=== PATIENT | female | born 2005 | race Caucasian/White ===

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

== ENCOUNTER 2024-08-22 13:22 | Emergency (ER) | payer MEDICAID, SELFPAY ==
[2024-08-22 13:24] VITALS: BP 121/78; PULSE 108; RESP 18; TEMP 37.1; O2SAT 98
--- NOTE | 2024-08-22 13:48 | ED.GENADUL_ITS ---
Discharge Plan Disposition Patient Disposition: Home Condition: Good Discharge Details Clinical Impression: Laceration of right index finger Primary Care Provider: Phillip Garcia ED Provider: Elbert Haji Home Meds and New Rx's Prescriptions: No Action pantoprazole 20 mg tablet,delayed release (DR/EC) 20 mg PO BID Patient Comments: TAKE ONE TABLET BY MOUTH TWICE A DAY BEFORE MEALS buspirone 10 mg tablet 10 mg PO BID Patient Comments: TAKE ONE TABLET BY MOUTH TWICE A DAY Discharge Instructions Instructions: Laceration Repair With Glue ED Additional Instructions: At this time your laceration has been sutured with Dermabond. Please keep the area clean and dry. Monitor closely for any redness, drainage or discharge. The glue will come off on its own in the next 5 to 7 days. Please keep the area covered and protected with the splint and bandage to prevent any separation of the skin. If you come back to the emergency department here it will be free of charge for the suture removal. For long-term scar cosmesis, please make sure to avoid any sun to the area for the next year. Apply moisturizer or vitamin E to the area twice daily for the next 12 months for the best chance of wound/scar medication. Please take a daily multivitamin as well as this can help in wound healing. If you notice any worsening of your symptoms, or any new symptoms such as vomiting, diarrhea, fever, chills, shortness of breath, chest pain, numbness, weakness, or fainting , please return immediately to the emergency department for reevaluation. Please follow up with your primary care provider as soon as possible for reassessment and reevaluation. As always, it was a pleasure participating in your medical care today. Referrals: Phillip Garcia [Primary Care Provider] - [facility] General Date/Time Provider Initiated Documentation: 08/22/24 13:37 . [facility] Narrative: This is a pleasant 19-year-old female with no significant past medical history who is left hand dominant who presents today for laceration to her right index finger. Patient cut it while slicing sweet potatoes. Knife was otherwise clean. She denies fever or chills or numbness or tingling. She came to the ER for further assessment. She believes her last tetanus is updated 5 years ago. No other complaints at this time. No other modifying factors. Related Data Home Medications ?Medication ?Instructions ?Recorded ?Confirmed buspirone 10 mg tablet 10 mg PO BID 08/22/24 08/22/24 pantoprazole 20 mg tablet,delayed 20 mg PO BID 08/22/24 08/22/24 release Allergies Allergy/AdvReac Type Severity Reaction Status Date / Time amoxicillin Allergy Intermediate Swelling/Ed Verified 08/22/24 13:26 pat clarithromycin Allergy Intermediate Hives Unverified 08/22/24 13:26 Penicillins Allergy Anaphylaxis Verified 08/22/24 13:26 General Stated Complaint: Laceration CELESTE: 3 Exam Narrative Exam Narrative: 1.Const: Well-nourished, Well-developed, appearing stated age 2.Eyes: PERRL, no conjunctival injection, and symmetrical lids. 3.ENT: Atraumatic external nose and ears. Moist MM. Neck: Symmetric, trachea midline, No thyromegaly. 4.CVS: +S1/S2, Peripheral pulses 2+ and equal in all extremities. Brisk capillary refill in all extremities. 5.RESP: Unlabored respiratory effort. Clear to auscultation bilaterally. No wheezes rales or rhonchi 6.GI: Soft, Nontender/Nondistended, No hepatosplenomegaly. No guarding or rebound. 7.MSK: Normocephalic/Atraumatic, Extremities w/o deformity or ttp No cyanosis or clubbing, Normal movement of all extremities. Patient demonstrates excellent flexion extension of the distal tip. Brisk capillary refill. Normal sensation throughout. 8.Skin: Warm, Dry. Right index finger demonstrates a small laceration from the DIP tip just underneath the nail slightly proximally on the medial edge. There does not appear to be tendon involvement. Continue mild bloody oozing is present. 9.Neuro: fabricator foam rubber II-XII grossly intact. Sensation grossly intact, no focal neurologic deficits. 10.Psych: (AAO) x3. Appropriate mood and affect Course Vital Signs Vital signs: Vital Signs Temperature 37.1 C 08/22/24 13:24 Pulse 108 H 08/22/24 13:24 Respiratory Rate 18 08/22/24 13:24 Blood Pressure 121/78 08/22/24 13:24 Pulse Oximetry 98 08/22/24 13:24 Temperature 37.1 C 08/22/24 13:24 Temperature Source Temporal Artery Scan 08/22/24 13:24 Pulse 108 H 03/07/25 13:24 Respiratory Rate 18 08/22/24 13:24 Blood Pressure 121/78 08/22/24 13:24 Pulse Oximetry 98 08/22/24 13:24 Medical Decision Making This is a pleasant 19-year-old female with no significant past medical history who is left hand dominant who presents today for laceration to her right index finger. Patient cut it while slicing sweet potatoes. Knife was otherwise clean. She denies fever or chills or numbness or tingling. She came to the ER for further assessment. She believes her last tetanus is updated 5 years ago. No other complaints at this time. No other modifying factors. Review of records indicate that the patient's tetanus was updated in 2022. Patient demonstrates a small laceration on the tip of her right index finger. The area was cleaned, tourniquet was applied, bleeding stopped. Due to the superficial component to the patient's laceration I do feel that Dermabond will be adequate for good laceration management. Multiple layers of Dermabond were applied, patient tolerated this well. She will give be given a splint for home use for home wound protection. Discussed red flags which return. I have extensively reviewed the treatment plan and discharge instructions with the zoe adhikari. I have addressed all patient concerns at this time. The patient was made aware of what symptoms to monitor for that would warrant a return to the emergency department. Discussed the plan with the patient, they demonstrate verbal understanding and agreement with our assessment and plan at this time. The documentation in this chart was dictated using [employer] dictation software. Please excuse any dictation errors. 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) Medical History (Updated 08/22/24 @ 13:55 by Elbert Haji DO) Acute cholecystitis Breast tenderness in female Well adolescent visit BMI (body mass index), pediatric, 5% to less than 85% for age (03/08/15) Depressive disorder (10/22/17) lexa and behavioral problems- will work with counselor and consider meds if worse Twins, both liveborn (02/28/13) Surgical History (Updated 08/03/23 @ 14:01 by Tierra Coffman) Hx of cholecystectomy (~07/2023) S/P laparoscopic cholecystectomy (~07/2023) Tonsillectomy and adenoidectomy 10/31 Family History Mother Fibrocystic breast Social History Smoking/Tobacco Use Status: Never Second Hand Exposure: No Smoking risk assessment performed?: Yes Alcohol Intake: never Drug use: Never Substance use type: does not use Adopted: No Foster care: No Housing: house Education Level: other Details: Home school for 10th grade Pets and animals: Yes (Dog and 2 guinea pigs) Pets and animals: dog(s) and guinea pig(s) Do you feel safe at home: Yes Do you feel safe in your relationship?: Yes Female Reproductive History Menstrual Duration of menses: 3-5 days control method: none History History 1 Para 1 Hx # Term Pregnancies 1 Multiple births 0 Hx # Pregnancies 0 Ectopic pregnancies 0 AB induced 0 Hx Number of Living Children 1 AB spontaneous 0 Past Pregnancies Del. Date GA/Weeks # Preg Succ Route Wgt Sex Labor Lgth Anesth esia Location [facility] 06/27/23 41 No Yes vaginal 3190.002 g Male 9hrs 20min CINTHIA Artis Delivery Date: 06/27/23 Last Updated by: Nano Wolfe CNM induced due to 40w6d and low MATHEW @ 6.8; episiotomy due to doppler FHR of 90's and maternal fatigueEvangelist
== END 2024-08-22 14:24 | disposition home or self-care (01) ==
PROVIDERS: Emergency Provider Student in an Organized Health Care Education/Training Program; PCP Student in an Organized Health Care Education/Training Program
DX: S61.210A Laceration without foreign body of right index finger without damage to nail, initial encounter (principal); W26.0XXA Contact with knife, initial encounter; Y93.G3 Activity, cooking and baking; Y92.89 Other specified places as the place of occurrence of the external cause
CPT/HCPCS: 12001; 99283

== ENCOUNTER 2024-08-27 22:31 | Outpatient (REF) | payer MEDICAID, SELFPAY ==
[2024-08-27 22:26] LABS: ALT 18 U/L (14-59); AST 12 U/L (15-37); Albumin 4.4 g/dL (3.4-5.0); Alkaline Phosphatase 131 U/L (46-116); Anion Gap 10.5 mmol/L (3-11); BUN 13 mg/dL (7-18); Bilirubin, Total 2.3 mg/dL (0.2-1.0); CO2 25.5 mmol/L (21.0-32.0); CREATININE 0.8 mg/dL (0.55-1.02); Calcium 9.4 mg/dL (8.5-10.1); Calculated LDL 69 mg/dL (<100); Chloride 108 mmol/L (98-107); Cholesterol 125 mg/dL (<200); Estimated GFR 108.11 (mL/min/1.73m2); Glucose 76 mg/dL (74-106); HDL Cholesterol 50 mg/dL (>or=50); Potassium 4.2 mmol/L (3.5-5.1); Sodium 144 mmol/L (136-145); Total Protein 6.9 g/dL (6.4-8.2); Triglyceride 32 mg/dL (<150)
== END 2024-08-27 22:32 | disposition home or self-care (01) ==
LOC: NCHCN 22:31
PROVIDERS: PCP Student in an Organized Health Care Education/Training Program; Visit Provider Student in an Organized Health Care Education/Training Program
DX: R19.5 Other fecal abnormalities (principal); Z13.220 Encounter for screening for lipoid disorders
CPT/HCPCS: 80053; 80061

== ENCOUNTER 2024-09-10 10:07 | Outpatient (REF) | payer MEDICAID, SELFPAY ==
[2024-09-10 15:25] LABS: ALT 20 U/L (14-59); AST 9 U/L (15-37); Albumin 4.3 g/dL (3.4-5.0); Alkaline Phosphatase 124 U/L (46-116); Anion Gap 8.5 mmol/L (3-11); BUN 13 mg/dL (7-18); Bilirubin, Direct 0.3 mg/dL (0.0-0.2); Bilirubin, Total 1.9 mg/dL (0.2-1.0); CO2 28.5 mmol/L (21.0-32.0); CREATININE 0.8 mg/dL (0.55-1.02); Calcium 9.3 mg/dL (8.5-10.1); Chloride 107 mmol/L (98-107); Estimated GFR 108.11 (mL/min/1.73m2); Glucose 84 mg/dL (74-106); Potassium 4.2 mmol/L (3.5-5.1); Sodium 144 mmol/L (136-145); Total Protein 6.9 g/dL (6.4-8.2)
== END 2024-09-10 10:08 | disposition home or self-care (01) ==
LOC: NCHCN 10:07
PROVIDERS: PCP Student in an Organized Health Care Education/Training Program; Visit Provider Student in an Organized Health Care Education/Training Program
DX: R17 Unspecified jaundice (principal)
CPT/HCPCS: 80053; 82248

== ENCOUNTER 2024-09-12 01:02 | Outpatient (CLI) | payer MEDICAID, SELFPAY ==
[2024-09-12 15:14] LABS: Abs Immature Grans 0.01 10^3/uL (0.0-0.06); Absolute Basophil Count 0.02 10^3/uL (0.0-0.2); Absolute Eosinophil Count 0.03 10^3/uL (0.0-0.7); Absolute Lymphocyte Count 2.09 10^3/uL (1.2-3.4); Absolute Monocyte Count 0.27 10^3/uL (0.1-0.8); Basophils % 0.4 %; Eosinophils % 0.6 %; HCT 41.5 % (36.0-46.0); HGB 14.1 g/dL (11.2-15.7); Immature Grans % 0.2 %; Lymphocytes % 42.5 %; MCH 31.8 pg (27.0-33.0); MCV 94 fL (80-95); MPV 9.2 fL (8.0-11.0); Monocytes % 5.5 %; Neutrophils % 50.8 %; Platelet Count 183 10^3/uL (130-400); RBC 4.43 10^6/uL (3.93-5.22); RDW 11.7 % (11.7-14.6); RDW-SD 40.4 fL; WBC 4.92 10^3/uL (4.4-10.8)
[2024-09-16 19:50] LABS: Tissue Transglutaminase Ab IgA <1.2 U/mL (<4.0); Tissue Transglutaminase Ab IgG 1.9 U/mL
[2024-09-18 15:39] LABS: Pyridoxal 5-Phosphate (PLP), P 11 mcg/L (5-50)
== END 2024-09-12 01:03 | disposition home or self-care (01) ==
LOC: LBO 01:02
PROVIDERS: PCP Student in an Organized Health Care Education/Training Program; Visit Provider Student in an Organized Health Care Education/Training Program
DX: R19.5 Other fecal abnormalities (principal); R17 Unspecified jaundice; R94.5 Abnormal results of liver function studies
CPT/HCPCS: 36415; 83516; 84207; 85025

== ENCOUNTER 2024-10-02 08:40 | Outpatient (CLI) | payer MEDICAID, SELFPAY ==
--- NOTE | 2024-10-02 | DI.US_ITS ---
Exam(s) US ABDOMEN EXAM: US ABDOMEN CLINICAL HISTORY: RUQ PAIN, R10.11,WORSENING,OCCS LUQ PAIN,H/O CHOLECYSTECTOMY TECHNIQUE: Ultrasound of complete upper abdomen performed using standard protocol. COMPARISON: US US ABDOMEN LIMITED from 08/02/[address] ABDOMEN PELVIS W from 08/04/2023 FINDINGS: There is no ascites evident. LIVER: There are no hepatic lesions evident nor obvious dilatation of intrahepatic ducts. GALLBLADDER/BILIARY: Gallbladder is surgically absent (08/02/2023). There is no abnormal fluid colle ction in the gallbladder fossa. The common hepatic duct isupper normal, measuring 6mm at the level of denis hepatis. PANCREAS: There is no evidence of pancreatic mass nor dilatation of the pancreatic duct. There are n o peripancreatic fluid collections. SPLEEN: The spleen is not enlarged and there are no intrasplenic lesions evident. KIDNEYS:Kidneys exhibit normal size with no evidence of solid mass, calculus, nor hydronephrosis. No cortical cysts evident. ABDOMINAL AORTA: There is no evidence of abdominal aortic aneurysm. IVC: Normal diameter where visualized. IMPRESSION: 1. Gallbladder surgically absent. CBD diameter is upper normal 2. No other significant ultrasound findings in the upper abdomen. 3. No abnormal fluid collections nor ascites. I note that prior CT scan performed in July 2023 revealed some fluid between the pancreatic tail and spleen most probably consistent with pancreatitis at that time. There are no abnormal fluid collections evident in this region on today's ultrasound exam images. In addition, the pancreas appears sonographically unremarkable. If there is continuing pain than 1 might consider follow-up CT scan as this may show subtle evidence of pancreatitis not visible on ultrasound. DATA REPOSITORY:
== END 2024-10-02 09:00 ==
LOC: DI 08:40
PROVIDERS: PCP Student in an Organized Health Care Education/Training Program; Visit Provider Student in an Organized Health Care Education/Training Program
DX: R10.11 Right upper quadrant pain (principal); Z90.49 Acquired absence of other specified parts of digestive tract
CPT/HCPCS: 76700

== ENCOUNTER 2024-10-28 01:27 | Outpatient (CLI) | payer MEDICAID, SELFPAY ==
[2024-10-28] MEDS: Barium Sulfate 2% W/V-Berry Smoothie 450 ML BTL PO (11:29)
[2024-10-28] MEDS: Barium Sulfate 2% W/V-Creamy Vanilla Smoothie 450 ML BTL PO (11:30)
[2024-10-28] MEDS: Omnipaque 350 MG/ML 100 ML BTL 75 ML IJ (14:19)
[2024-10-28] MEDS: Normal Saline - Diluent 50 ML VIAL IJ (14:20)
--- NOTE | 2024-10-28 14:20 | DI.CT_ITS ---
Exam(s) CT ABDOMEN PELVIS W EXAM: CT ABDOMEN PELVIS W CLINICAL HISTORY: ACUTE UPPER ABDOMINAL PAIN, R10.10 HX PANCREATITIS TECHNIQUE: Imaging Protocol: Axial computed tomography images with coronal and sagittal reformatted images were created and reviewed. CONTRAST MATERIAL: Intravenous: Omnipaque 350 Contrast volume:75 mL Oral: Yes COMPARISON: CT CT ABDOMEN PELVIS W from 08/04/2023 FINDINGS: ABDOMEN: Lung Bases: No acute abnormality. Liver: Normal density. No measurable mass. Portal, Superior Mesenteric, and Splenic Veins: Unremarkable. Gallbladder and Biliary Tract: Status post cholecystectomy. No significant biliary ductal dilatation. Pancreas: Normal density, no abnormal calcifications or inflammatory process. Spleen: Normal. Adrenals: No masses seen. Kidneys: Normal size, contour and axis. No radiodense stones or obstructive uropathy. No masses seen. Abdominal Aorta: Abdominal portion non-dilated. Bowel: No obstruction or bowel wall thickening. There is no evidence of appendicitis. Peritoneal Cavity: There is a trace amount of free fluid in the cul-de-sac which may be physiologic. No free air. Lymph Nodes: Within normal limits. Bones: Within normal limits for the patient's age. Soft Tissues: There is a small fat containing umbilical hernia. PELVIS: Bladder: Symmetric distention, no gross wall thickening. Reproductive Organs: There is a corpus luteal cyst on the left ovary. Lymph Nodes: Within normal limits. Bones: Within normal limits for the patient's age. IMPRESSION: 1. No CT evidence to suggest acute pancreatitis. 2. Status post cholecystectomy. 3. Left corpus luteal cyst. Trace amount of free fluid in the pelvis which is likely physiologic. RADIATION DOSE DELIVERED: 354.84mGy.cm Total DLP DATA REPOSITORY: All CT scans at this facility are submitted to the National Radiology Data Registry (NRDR) Dose Index Registry (DIR) with the [employer] (ACR). RADIATION OPTIMIZATION: All CT scans at this facility use at least one of these dose optimization te chniques: automated exposure control; mA and/or kV adjustment per patient size (includes targeted exa ms where dose is matched to clinical indication); or iterative reconstruction.
== END 2024-10-28 01:47 ==
LOC: DI 01:27
PROVIDERS: PCP Student in an Organized Health Care Education/Training Program; Visit Provider Student in an Organized Health Care Education/Training Program
DX: R10.10 Upper abdominal pain, unspecified (principal)
CPT/HCPCS: 74177; J3490

== ENCOUNTER 2024-11-25 16:15 | Outpatient (CLI) | payer MEDICAID, SELFPAY ==
[2024-11-25 16:42] LABS: Abs Immature Grans 0.02 10^3/uL (0.0-0.06); Absolute Basophil Count 0.02 10^3/uL (0.0-0.2); Absolute Eosinophil Count 0.01 10^3/uL (0.0-0.7); Absolute Lymphocyte Count 1.89 10^3/uL (1.2-3.4); Absolute Monocyte Count 0.38 10^3/uL (0.1-0.8); Basophils % 0.3 %; Eosinophils % 0.1 %; HCT 40.7 % (36.0-46.0); HGB 13.7 g/dL (11.2-15.7); Immature Grans % 0.3 %; Lymphocytes % 26.2 %; MCH 31.5 pg (27.0-33.0); MCHC 33.7 % (32.0-36.0); MCV 94 fL (80-95); MPV 9.2 fL (8.0-11.0); Monocytes % 5.3 %; Neutrophils % 67.8 %; Platelet Count 184 10^3/uL (130-400); RBC 4.35 10^6/uL (3.93-5.22); RDW 11.8 % (11.7-14.6); WBC 7.22 10^3/uL (4.4-10.8)
[2024-11-25 17:13] LABS: ALT 24 U/L (14-59); AST 11 U/L (15-37); Albumin 4.2 g/dL (3.4-5.0); Alkaline Phosphatase 111 U/L (46-116); Amylase 46 U/L (25-115); Anion Gap 10.6 mmol/L (3-11); BUN 13 mg/dL (7-18); Bilirubin, Total 1.7 mg/dL (0.2-1.0); CO2 25.4 mmol/L (21.0-32.0); CREATININE 0.7 mg/dL (0.55-1.02); Calcium 9.1 mg/dL (8.5-10.1); Chloride 105 mmol/L (98-107); Glucose 90 mg/dL (74-106); Lipase 30 U/L (<78); Sodium 141 mmol/L (136-145); Total Protein 6.9 g/dL (6.4-8.2)
[2024-11-25 17:20] LABS: C-Reactive Protein < 0.50 mg/dL (<or=0.5)
== END 2024-11-25 16:16 | disposition home or self-care (01) ==
LOC: LBO 16:17
PROVIDERS: PCP Student in an Organized Health Care Education/Training Program; Visit Provider Student in an Organized Health Care Education/Training Program
DX: R10.10 Upper abdominal pain, unspecified (principal)
CPT/HCPCS: 36415; 80053; 83690; 82150; 85025; 86140

== ENCOUNTER 2025-05-18 20:16 | Emergency (ER) | payer MEDICAID, SELFPAY ==
[2025-05-18 20:17] VITALS: BP 116/81; PULSE 87; RESP 18; TEMP 35.7; O2SAT 98
--- NOTE | 2025-05-18 20:25 | W.ED.GENAD ---
Discharge Plan Discharge Details Chief Complaint: Abd Prob Primary Care Provider: Phillip Garcia ED Provider: Koki Perkins Home Meds and New Rx's Prescriptions: No Action pantoprazole 20 mg tablet,delayed release (DR/EC) 20 mg PO BID Patient Comments: TAKE ONE TABLET BY MOUTH TWICE A DAY BEFORE MEALS pantoprazole 40 mg tablet,delayed release (DR/EC) 40 mg PO BID Patient Comments: TAKE ONE TABLET BY MOUTH TWICE A DAY hydroxyzine HCl 10 mg tablet See Rx Instructions PO .COMPLEX Patient Comments: TAKE 1-2 TABLETS BY MOUTH TWO TIMES A DAY NEEDED FOR ANXIETY AND RASH Rx Instructions: 1-2 tab, BID, PRN orally; sertraline 50 mg tablet 50 mg PO DAILY Patient Comments: TAKE ONE TABLET BY MOUTH EVERY DAY HPI General Date/Time Provider Initiated Documentation: 05/18/25 20:18. HPI Narrative: Christie is a 19-year-old female presents to the emergency department today for evaluation of worsening right lower quadrant pain x 3 days. She reports that it has been increasing in intensity and frequency since onset, is described as a sharp constant pain that is worsened with coughing or bearing down. Denies fever/chills, recent illness such as congestion/sore throat/cough, chest pain, nausea/vomiting, change in p.o. intake, change in bowel or bladder function, unusual vaginal discharge. LMP 1 week ago. No history of similar symptoms. Past medical history significant for ovarian cyst, gallstone pancreatitis. Surgical history significant for cholecystectomy and tonsillectomy/adenoidectomy. She has not taken any medication at home for symptoms. Related Data Home Medications ?Medication ?Instructions ?Recorded ?Confirmed pantoprazole 20 mg tablet,delayed 20 mg PO BID 08/22/24 05/18/25 release hydroxyzine HCl 10 mg tablet See Rx Instructions PO .COMPLEX 05/18/25 05/18/25 pantoprazole 40 mg tablet,delayed 40 mg PO BID 05/18/25 05/18/25 release sertraline 50 mg tablet 50 mg PO DAILY 05/18/25 05/18/25 Allergies Allergy/AdvReac Type Severity Reaction Status Date / Time amoxicillin Allergy Intermediate Swelling/Ed Verified 05/18/25 20:20 pat clarithromycin Allergy Intermediate Hives Unverified 05/18/25 20:20 Penicillins Allergy Anaphylaxis Verified 05/18/25 20:20 General Stated Complaint: Abd Prob CELESTE: 3 Exam Const General: cooperative, healthy appearing, comfortable, no acute distress and well developed Nutritional Appearance: average body habitus and well nourished Orientation: alert and oriented x3 Resp Effort & Inspection: normal respiratory effort and able to speak in complete sentences Auscultation: clear to auscultation bilaterally Cardio Rate: regular rate Rhythm: regular rhythm GI Inspection: normal to inspection, no abdominal wall ecchymosis and non-distended Palpation: soft, no masses, no pulsatile masses and tender in the RLQ Auscultation: normal bowel sounds Back/Spine/Pelvis Back: no CVA tenderness Skin General skin exam: no rashes or lesions noted Course Vital Signs Vital signs: Vital Signs Temperature 35.7 C L 05/18/25 20:17 Pulse 87 05/18/25 20:17 Respiratory Rate 18 05/18/25 20:17 Blood Pressure 116/81 05/18/25 20:17 Pulse Oximetry 98 05/18/25 20:17 Temperature 35.7 C L 05/18/25 20:17 Pulse 87 05/18/25 20:17 Respiratory Rate 18 05/18/25 20:17 Blood Pressure 116/81 05/18/25 20:17 Pulse Oximetry 98 05/18/25 20:17 Pain Level 6 05/18/25 20:17 Medical Decision Making Christie is a 19-year-old female presents to the emergency department today for evaluation of worsening right lower quadrant pain x 3 days. She reports that it has been increasing in intensity and frequency since onset, is described as a sharp constant pain that is worsened with coughing or bearing down. Denies fever/chills, recent illness such as congestion/sore throat/cough, chest pain, nausea/vomiting, change in p.o. intake, change in bowel or bladder function, unusual vaginal discharge. LMP 1 week ago. No history of similar symptoms. Past medical history significant for ovarian cyst, gallstone pancreatitis. Surgical history significant for cholecystectomy and tonsillectomy/adenoidectomy. She has not taken any medication at home for symptoms. Physical exam reassuring. Abdomen soft, nondistended, tender to palpation right lower quadrant, normal Bowel sounds. No CVA tenderness. Easy work of breathing, lung sounds clear bilaterally. Normal heart sounds, regular rate and rhythm. DDx includes but is not limited to: Appendicitis, diverticulitis, ovarian cyst, fibroids, colitis, UTI, pyelonephritis I independently interpreted the following tests: CBC, CMP, magnesium, lipase, UA, hCG all unremarkable. While in the emergency department Christie was given IV Toradol without significant proving of symptoms. [facility] report pending. Handoff report given to Dr. Noble, overnight attending. 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) Medical History (Updated 09/22/24 @ 00:02 by CHING FARNSWORTH) Acute cholecystitis Breast tenderness in female Well adolescent visit BMI (body mass index), pediatric, 5% to less than 85% for age (03/08/15) Depressive disorder (10/22/17) lexa and behavioral problems- will work with counselor and consider meds if worse Twins, both liveborn (02/28/13) Surgical History (Updated 08/03/23 @ 14:01 by Tierra Coffman) Hx of cholecystectomy (~07/2023) S/P laparoscopic cholecystectomy (~07/2023) Tonsillectomy and adenoidectomy 10/31 Family History Mother Fibrocystic breast Social History Smoking/Tobacco Use Status: Never Second Hand Exposure: No Smoking risk assessment performed?: Yes Alcohol Intake: never Drug use: Never Substance use type: does not use Adopted: No Foster care: No Housing: house Education Level: other Details: Home school for 10th grade Pets and animals: Yes (Dog and 2 guinea pigs) Pets and animals: dog(s) and guinea pig(s) Do you feel safe at home: Yes Do you feel safe in your relationship?: Yes Female Reproductive History Menstrual Duration of menses: 3-5 days control method: none History History 1 Para 1 Hx # Term Pregnancies 1 Multiple births 0 Hx # Pregnancies 0 Ectopic pregnancies 0 AB induced 0 Hx Number of Living Children 1 AB spontaneous 0 Past Pregnancies Del. 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
[2025-05-18] MEDS: Ketorolac 15 MG/ML VIAL IVP (20:50)
[2025-05-18 20:54] LABS: Glucose Negative (Negative)
[2025-05-18 20:56] LABS: Abs Immature Grans 0.01 10^3/uL (0.0-0.06); HCT 41.1 % (36.0-46.0); HGB 13.8 g/dL (11.2-15.7); Immature Grans % 0.1 %; MCH 32.2 pg (27.0-33.0); MCHC 33.6 % (32.0-36.0); MCV 96 fL (80-95); MPV 8.9 fL (8.0-11.0); Platelet Count 197 10^3/uL (130-400); RBC 4.28 10^6/uL (3.93-5.22); RDW 11.8 % (11.7-14.6); RDW-SD 41.1 fL; WBC 7.27 10^3/uL (4.4-10.8)
[2025-05-18 21:00] VITALS: BP 116/81; PULSE 87; RESP 16; TEMP 35.7; O2SAT 98
[2025-05-18 21:10] LABS: Magnesium 2.0 mg/dL (1.6-2.6)
[2025-05-18 21:12] LABS: ALT 10 U/L (10-49); AST 12 U/L (<34); Albumin 4.4 g/dL (3.2-5.0); Alkaline Phosphatase 96 U/L (46-116); Anion Gap 7.6 mmol/L (3-11); BUN 16 mg/dL (9-23); Bilirubin, Total 1.10 mg/dL (0.2-1.2); CO2 27.4 mmol/L (20.0-31.0); Calcium 9.0 mg/dL (8.3-10.6); Chloride 106 mmol/L (98-107); Glucose 89 mg/dL (74-106); Potassium 4.3 mmol/L (3.5-5.1); Sodium 141 mmol/L (136-145); Total Protein 6.7 g/dL (5.7-8.2)
--- NOTE | 2025-05-18 21:30 | DI.CT_ITS ---
Exam(s) CT ABDOMEN PELVIS W EXAM: CT ABDOMEN PELVIS W CLINICAL HISTORY: RLQ pain x 3 days TECHNIQUE: Imaging Protocol: Axial computed tomography images with coronal and sagittal reformatted images were created and reviewed. CONTRAST MATERIAL: Intravenous: Omnipaque 350 Contrast volume:75 mL Oral: No COMPARISON: CT CT ABDOMEN PELVIS W from 08/04/[address] ABDOMEN PELVIS W from 10/28/2024 FINDINGS: ABDOMEN: Lung Bases: No acute abnormality. Liver: Normal density. No measurable mass. Portal, Superior Mesenteric, and Splenic Veins: Unremarkable. Gallbladder and Biliary Tract: Status post cholecystectomy. There is no significant biliary ductal dilatation. Pancreas: Normal density, no abnormal calcifications or inflammatory process. Spleen: Normal. Adrenals: No masses seen. Kidneys: Normal size, contour and axis. No radiodense stones or obstructive uropathy. No masses seen. Abdominal Aorta: Abdominal portion non-dilated. Bowel: No obstruction or bowel wall thickening. Appendix is unremarkable. Peritoneal Cavity: There is a trace amount of fluid in the cul-de-sac which is likely physiologic. No free air. Lymph Nodes: Within normal limits. Bones: Within normal limits for the patient's age. Soft Tissues: There is a small fat containing umbilical hernia. PELVIS: Bladder: Symmetric distention, no gross wall thickening. Reproductive Organs: Unremarkable as visualized. There is a 1.6 cm physiologic right ovarian cyst. Lymph Nodes: Within normal limits. Bones: Within normal limits for the patient's age. IMPRESSION: 1. There is no evidence of appendicitis. 2. There is no acute abdominal or pelvic process. 3. 1.6 cm right ovarian cyst and trace amount of free fluid in the cul-de-sac which is likely physiologic. 4. The preliminary [facility] report was reviewed. RADIATION DOSE DELIVERED: 365.34mGy.cm Total DLP DATA REPOSITORY: All CT scans at this facility are submitted to the National Radiology Data Registry (NRDR) Dose Index Registry (DIR) with the [employer] (ACR). RADIATION OPTIMIZATION: All CT scans at this facility use at least one of these dose optimization techniques: automated exposure control; mA and/or kV adjustment per patient size (includes targeted exams where dose is matched to clinical indication); or iterative reconstruction.
[2025-05-18 21:36] LABS: Lab Add On Test DONE
[2025-05-18 21:49] LABS: Lipase 36 U/L (<53)
[2025-05-18] MEDS: Omnipaque 350 MG/ML 100 ML BTL IJ (23:07)
[2025-05-18] MEDS: Normal Saline Flush 10 ML SYR IVP (23:09)
[2025-05-18] MEDS: Normal Saline - Diluent 50 ML VIAL IJ (23:09)
[2025-05-18 23:26] VITALS: RESP 16
--- NOTE | 2025-05-18 23:56 | DI.[facility]_ITS ---
PROCEDURE INFORMATION: Exam: CT Abdomen And Pelvis With Contrast Exam date and time: 05/18/2025 11:04 PM Age: 19 years old Clinical indication: Abdominal pain; Localized; Right lower quadrant (rlq); Prior surgery; Surgery date: 6+ months; Surgery type: Cholecystectomy TECHNIQUE: Imaging protocol: Computed tomography of the abdomen and pelvis with contrast. Radiation optimization: All CT scans at this facility use at least one of these dose optimization techniques: automated exposure control; mA and/or kV adjustment per patient size (includes targeted exams where dose is matched to clinical indication); or iterative reconstruction. Contrast material: OMNIPAQUE 350; Contrast volume: 75 ml; Contrast route: INTRAVENOUS (IV); COMPARISON: CT ABDOMEN PELVIS W 10/28/2024 2:15 PM FINDINGS: Liver: Normal. No mass. Gallbladder and biliary ducts: Gallbladder surgically absent. Pancreas: Normal. No ductal dilation. Spleen: Normal. No splenomegaly. Adrenal glands: Normal. No mass. Kidneys and ureters: Normal. No hydronephrosis. Stomach and bowel: Unremarkable. No obstruction. No mucosal thickening. Appendix: No evidence of appendicitis. Intraperitoneal space: Small amount of free pelvic fluid. Vasculature: Unremarkable. No abdominal aortic aneurysm. Lymph nodes: Unremarkable. No enlarged lymph nodes. Urinary bladder: Unremarkable as visualized. Reproductive: 1.7 cm low attenuation lesion at the right ovary suggestive of an cyst. 8 mm right Bartholin's gland cyst. Bones/joints: Unremarkable. No acute fracture. Soft tissues: Unremarkable. IMPRESSION: 1.7 cm low attenuation lesion at the right ovary suggestive of an cyst. Dictated and Authenticated by: Deep Mike MD. Orderin Rick Telles MD
--- NOTE | 2025-05-19 00:35 | W.EDPROG ---
Date of service: 05/18/25 Time of Service: 23:30 Medical Decision Making This patient was signed out to me. Please see previous notes for H&P and initial eval. ED workup reviewed: -CBC reassuring with no leukocytosis or anemia, CMP wtih no actionable abnormalities, lipase not suggestive of pancreatitis, UA not infected. -CT with small right ovarian cyst, no other acute findings. On my assessment patient reports lower right abdominal pain for the past two days, worsening, now severe. Has had ovarian cysts in the past but this pain is not similar. No N/V/D. No vaginal discharge. Otherwise in her usual state of health. Patient has had minimal improvement in pain despite medication here, remains severe 11/25. On my exam abdominal exam with RLQ tenderness, no rebound or guarding. Pelvic exam performed with assistance of primary RN; no CMT, does have rt adenxal tenderness. Will give low-dose IV morphine. Given symptoms and adenexal tenderness, warrants pelvic US to evaluate for ovarian pathology including torsion. [facility] without US availability overnight. Discussed with [facility] [place] transfer center; pt accepted ED to ED under Dr. Rg. Transferred via [facility]. Lab Data Lab results reviewed: Yes I reviewed the patient's lab results. Labs: Laboratory Tests Range/Units 05/18/25 05/18/25 20:40 21:32 WBC (4.4-10.8) 10^3/uL 7.27 RBC (3.93-5.22) 10^6/uL 4.28 Hgb (11.2-15.7) g/dL 13.8 Hct (36.0-46.0) % 41.1 MCV (80-95) fL 96 H MCH (27.0-33.0) pg 32.2 MCHC (32.0-36.0) % 33.6 RDW (11.7-14.6) % 11.8 Plt Count (130-400) 10^3/uL 197 MPV (8.0-11.0) fL 8.9 Immature Gran % % 0.1 Neutrophils % % 62.3 Lymphocytes % % 31.2 Monocytes % % 5.4 Eosinophils % % 0.6 Basophils % % 0.4 Nucleated RBC % (0.0-0.3) % 0.0 Absolute Neutrophils (1.2-6.7) 10^3/uL 4.53 Absolute Lymphocytes (1.2-3.4) 10^3/uL 2.27 Absolute Monocytes (0.1-0.8) 10^3/uL 0.39 Absolute Eosinophils (0.0-0.7) 10^3/uL 0.04 Absolute Basophils (0.0-0.2) 10^3/uL 0.03 Sodium (136-145) mmol/L 141 Potassium (3.5-5.1) mmol/L 4.3 Chloride (98-107) mmol/L 106 Carbon Dioxide (20.0-31.0) mmol/L 27.4 Anion Gap (3-11) mmol/L 7.6 BUN (9-23) mg/dL 16 Creatinine (0.55-1.02) mg/dL 0.93 Est GFR (CKD-EPI 2020) (mL/min/1.73m2) 76.20 Glucose (74-106) mg/dL 89 Calcium (8.3-10.6) mg/dL 9.0 Magnesium (1.6-2.6) mg/dL 2.0 Total Bilirubin (0.2-1.2) mg/dL 1.10 AST (<34) U/L 12 ALT (10-49) U/L 10 Alkaline Phosphatase (46-116) U/L 96 Total Protein (5.7-8.2) g/dL 6.7 Albumin (3.2-5.0) g/dL 4.4 Lipase (<53) U/L 36 Urine Color (Yellow) Yellow Urine Clarity (Clear) Clear Urine pH (5-8) 7.0 Ur Specific Couch (1.005-1.025) 1.015 Urine Protein (Neg-Trace) mg/dL Negative Urine Ketones (Negative) mg/dL Negative Urine Blood (Negative) Negative Urine Nitrite (Negative) Negative Urine Bilirubin (Negative) Negative Urine Urobilinogen (Up to 0.2) mg/dL 0.2 Ur Leukocyte Esterase (Negative) Negative Urine Glucose (Negative) mg/dL Negative Add-On Test Request DONE Discharge Plan Disposition Patient Disposition: Other Disposition Not Listed [place] [facility] [place]: Serious Discharge Details Clinical Impression: Right lower quadrant abdominal pain Primary Care Provider: Phillip Garcia ED Provider: Taylor Nbole Home Meds and New Rx's Prescriptions: No Action pantoprazole 20 mg tablet,delayed release (DR/EC) 20 mg PO BID Patient Comments: TAKE ONE TABLET BY MOUTH TWICE A DAY BEFORE MEALS pantoprazole 40 mg tablet,delayed release (DR/EC) 40 mg PO BID Patient Comments: TAKE ONE TABLET BY MOUTH TWICE A DAY hydroxyzine HCl 10 mg tablet See Rx Instructions PO .COMPLEX Patient Comments: TAKE 1-2 TABLETS BY MOUTH TWO TIMES A DAY NEEDED FOR ANXIETY AND RASH Rx Instructions: 1-2 tab, BID, PRN orally; sertraline 50 mg tablet 50 mg PO DAILY Patient Comments: TAKE ONE TABLET BY MOUTH EVERY DAY
[2025-05-19] MEDS: MORPHine 10 MG/ML VIAL 2 MG IVP (00:51)
[2025-05-19 01:08] VITALS: RESP 16
[2025-05-19 01:51] VITALS: PULSE 70; O2SAT 96
[2025-05-19] MEDS: Ondansetron 4 MG/2 ML VIAL IVP (02:02)
[2025-05-19] MEDS: MORPHine 10 MG/ML VIAL 4 MG IVP (02:03)
[2025-05-19 02:16] VITALS: RESP 16
== END 2025-05-19 02:22 | disposition other institution (70) ==
PROVIDERS: Nurse Practitioner Family; Emergency Provider Student in an Organized Health Care Education/Training Program; PCP Student in an Organized Health Care Education/Training Program
DX: R10.31 Right lower quadrant pain (principal)
CPT/HCPCS: 00123; 80053; 81025; 83690; 96374; 96375; 96376; 99285; 74177; 81003; 83735; 85025; J1885; J2270; J2405; J3490

== ENCOUNTER 2025-05-22 11:12 | Outpatient (REF) | payer MEDICAID, SELFPAY ==
[2025-05-25 12:03] LABS: Chlamydia Result Negative (Negative); GC Result Negative (Negative)
== END 2025-05-22 11:13 | disposition home or self-care (01) ==
LOC: LBN 11:12
PROVIDERS: PCP Student in an Organized Health Care Education/Training Program; Visit Provider Obstetrics & Gynecology
DX: Z11.3 Encounter for screening for infections with a predominantly sexual mode of transmission (principal)
CPT/HCPCS: 87491; 87591

== ENCOUNTER 2025-06-03 16:15 | Outpatient (CLI) | payer MEDICAID, SELFPAY ==
[2025-06-03 16:18] LABS: Abs Immature Grans 0.02 10^3/uL (0.0-0.06); HCT 43.8 % (36.0-46.0); HGB 14.9 g/dL (11.2-15.7); Immature Grans % 0.2 %; MCH 31.4 pg (27.0-33.0); MCHC 34.0 % (32.0-36.0); MCV 92 fL (80-95); MPV 8.9 fL (8.0-11.0); Platelet Count 197 10^3/uL (130-400); RBC 4.75 10^6/uL (3.93-5.22); RDW 11.7 % (11.7-14.6); RDW-SD 39.7 fL; WBC 9.06 10^3/uL (4.4-10.8)
[2025-06-03 17:04] LABS: HCG Quant, Pregnancy < 3 mIU/mL (1.5-4.2)
== END 2025-06-03 16:16 | disposition home or self-care (01) ==
LOC: LBO 16:16
PROVIDERS: PCP Student in an Organized Health Care Education/Training Program; Visit Provider Obstetrics & Gynecology
DX: R10.9 Unspecified abdominal pain (principal)
CPT/HCPCS: 36415; 84702; 85025

== ENCOUNTER 2025-06-04 13:19 | Outpatient (REF) | payer MEDICAID, SELFPAY ==
[2025-06-05 11:03] LABS: Chlamydia Result Negative (Negative); GC Result Negative (Negative)
== END 2025-06-04 13:20 | disposition home or self-care (01) ==
LOC: LBN 13:19
PROVIDERS: PCP Student in an Organized Health Care Education/Training Program; Visit Provider Obstetrics & Gynecology
DX: Z30.430 Encounter for insertion of intrauterine contraceptive device (principal)
CPT/HCPCS: 87491; 87591